=== PATIENT | male | born 1970 | race Two or more races ===

== ENCOUNTER 2020-05-21 07:21 | Outpatient (REF) | payer OTHER, SELFPAY ==
[2020-05-21 11:49] LABS: Estimated Average Glucose 151 mg/dL; Hemoglobin A1c % 6.9 %
[2020-05-21 11:52] LABS: Alanine Aminotransferase 15 U/L (0-40); Albumin Level 4.1 g/dL (3.5-5.0); Alkaline Phosphatase 109 U/L (39-117); Anion Gap 12 (12-20); Aspartate Amino Transferase 15 U/L (5-37); Bilirubin Total 0.4 mg/dL (0.0-1.0); Blood Urea Nitrogen 19 mg/dL (9-16); Calcium 8.6 mg/dL (8.4-10.2); Carbon Dioxide 27 mmol/L (22-29); Chloride 106 mmol/L (96-108); Cholesterol 152 mg/dL; Estimated Glomerular Filt Rate > 60; Glucose Fasting 128 mg/dL (60-99); HDL Cholesterol 45 mg/dL; LDL Cholesterol Calculated 85 mg/dl; Potassium 4.1 mmol/L (3.3-5.1); Sodium 141 mmol/L (135-145); Total Protein 7.1 g/dL (6.5-8.0); Triglycerides 110 mg/dL
[2020-05-21 11:58] LABS: Creatinine Urine 146.27 mg/dL; Microalbum/Creatinine Ratio Ur 5.4 ug/mg cr
== END 2020-05-21 07:22 | disposition home or self-care (01) ==
LOC: HO.HMGCLDS 07:21
PROVIDERS: PCP Internal Medicine; Visit Provider Internal Medicine
DX: E11.65 Type 2 diabetes mellitus with hyperglycemia (principal)
CPT/HCPCS: 36415; 80053; 80061; 82043; 83036

== ENCOUNTER 2021-02-22 08:40 | Outpatient (REF) | payer OTHER, SELFPAY ==
[2021-02-22 12:05] LABS: Alanine Aminotransferase 36 U/L (0-40); Albumin Level 4.2 g/dL (3.5-5.0); Alkaline Phosphatase 116 U/L (39-117); Anion Gap 11 (12-20); Aspartate Amino Transferase 20 U/L (5-37); Bilirubin Total 0.8 mg/dL (0.0-1.0); Blood Urea Nitrogen 12 mg/dL (9-16); Calcium 9.1 mg/dL (8.4-10.2); Carbon Dioxide 27 mmol/L (22-29); Chloride 105 mmol/L (96-108); Cholesterol 129 mg/dL; Estimated Glomerular Filt Rate > 60; Glucose Fasting 288 mg/dL (60-99); HDL Cholesterol 39 mg/dL; LDL Cholesterol Calculated 55 mg/dl; Potassium 4.4 mmol/L (3.3-5.1); Sodium 139 mmol/L (135-145); Total Protein 7.1 g/dL (6.5-8.0); Triglycerides 175 mg/dL
[2021-02-22 12:07] LABS: Estimated Average Glucose 295 mg/dL; Hemoglobin A1c % 11.9 %
[2021-02-22 12:28] LABS: Prostate Specific Antigen Scr 0.32 ng/mL (<0.05-4.0); TSH reflex Free T4 0.83 uIU/mL (0.32-4.0)
[2021-02-22 12:31] LABS: Creatinine Urine 176.85 mg/dL
== END 2021-02-22 08:41 | disposition home or self-care (01) ==
LOC: HO.HMGCLDS 08:40
PROVIDERS: PCP Internal Medicine; Visit Provider Internal Medicine
DX: I10 Essential (primary) hypertension (principal); E11.65 Type 2 diabetes mellitus with hyperglycemia; E78.5 Hyperlipidemia, unspecified
CPT/HCPCS: 36415; 80053; 80061; 82043; 83036; 84153; 84443

== ENCOUNTER 2021-04-21 07:20 | Outpatient (REF) | payer OTHER, SELFPAY ==
[2021-04-21 11:55] LABS: Hemoglobin A1c % > 14.0 %
[2021-04-21 11:59] LABS: Alanine Aminotransferase 44 U/L (0-40); Alkaline Phosphatase 138 U/L (39-117); Anion Gap 15 (12-20); Aspartate Amino Transferase 25 U/L (5-37); Bilirubin Total 1.3 mg/dL (0.0-1.0); Blood Urea Nitrogen 13 mg/dL (9-16); Calcium 9.1 mg/dL (8.4-10.2); Carbon Dioxide 28 mmol/L (22-29); Chloride 99 mmol/L (96-108); Estimated Glomerular Filt Rate > 60; Glucose Fasting 381 mg/dL (60-99); Potassium 4.5 mmol/L (3.3-5.1); Sodium 137 mmol/L (135-145); Total Protein 6.9 g/dL (6.5-8.0)
== END 2021-04-21 07:21 | disposition home or self-care (01) ==
LOC: HO.HMGCLDS 07:20
PROVIDERS: PCP Internal Medicine; Visit Provider Nurse Practitioner Family
DX: E11.65 Type 2 diabetes mellitus with hyperglycemia (principal)
CPT/HCPCS: 36415; 80053; 83036

== ENCOUNTER 2021-08-05 07:45 | Outpatient (REF) | payer OTHER, SELFPAY ==
[2021-08-05 11:33] LABS: Alanine Aminotransferase 25 U/L (0-40); Alkaline Phosphatase 127 U/L (39-117); Anion Gap 9 (12-20); Aspartate Amino Transferase 17 U/L (5-37); Bilirubin Total 0.7 mg/dL (0.0-1.0); Blood Urea Nitrogen 14 mg/dL (9-16); Calcium 9.5 mg/dL (8.4-10.2); Carbon Dioxide 29 mmol/L (22-29); Chloride 105 mmol/L (96-108); Estimated Glomerular Filt Rate > 60; Glucose Random 203 mg/dL (60-115); Potassium 4.3 mmol/L (3.3-5.1); Sodium 139 mmol/L (135-145); Total Protein 7.1 g/dL (6.5-8.0)
[2021-08-05 11:52] LABS: Estimated Average Glucose 298 mg/dL
== END 2021-08-05 07:46 | disposition home or self-care (01) ==
LOC: HO.HMGCLDS 07:45
PROVIDERS: Visit Provider Internal Medicine
DX: E11.65 Type 2 diabetes mellitus with hyperglycemia (principal); E78.5 Hyperlipidemia, unspecified; I10 Essential (primary) hypertension
CPT/HCPCS: 36415; 80053; 83036

== ENCOUNTER 2022-03-03 06:35 | Outpatient (REF) | payer OTHER, SELFPAY ==
[2022-03-03 11:40] LABS: Alanine Aminotransferase 32 U/L (0-40); Albumin Level 4.3 g/dL (3.5-5.0); Alkaline Phosphatase 132 U/L (39-117); Anion Gap 14 (12-20); Aspartate Amino Transferase 19 U/L (5-37); Bilirubin Total 0.6 mg/dL (0.0-1.0); Blood Urea Nitrogen 17 mg/dL (9-16); Calcium 9.4 mg/dL (8.4-10.2); Carbon Dioxide 28 mmol/L (22-29); Chloride 101 mmol/L (96-108); Cholesterol 144 mg/dL; Estimated Glomerular Filt Rate > 60; Glucose Fasting 326 mg/dL (60-99); HDL Cholesterol 43 mg/dL; LDL Cholesterol Calculated 74 mg/dl; Potassium 4.5 mmol/L (3.3-5.1); Sodium 138 mmol/L (135-145); Total Protein 7.4 g/dL (6.5-8.0); Triglycerides 136 mg/dL
[2022-03-03 12:20] LABS: Creatinine Urine 106.13 mg/dL; Microalbum/Creatinine Ratio Ur 5.6 ug/mg cr
[2022-03-03 12:43] LABS: Estimated Average Glucose 255 mg/dL; Hemoglobin A1c % 10.5 %
== END 2022-03-03 06:36 | disposition home or self-care (01) ==
LOC: HO.HMGCLDS 06:35
PROVIDERS: PCP Internal Medicine; Visit Provider Internal Medicine
DX: E11.65 Type 2 diabetes mellitus with hyperglycemia (principal); E78.5 Hyperlipidemia, unspecified; I10 Essential (primary) hypertension
CPT/HCPCS: 36415; 80053; 80061; 82043; 83036

== ENCOUNTER 2024-03-05 06:04 | Outpatient (REF) | payer OTHER, SELFPAY ==
[2024-03-05 10:07] LABS: MANUAL DIFF FLAG NO
[2024-03-05 10:17] LABS: Basophils Percent Auto 0.4 % (0-2); Eosinophils Absolute Auto 0.2 X10*3/uL (0.0-0.4); Eosinophils Percent Auto 2.5 % (0-4); Hematocrit 41.2 % (42.0-52.0); Hemoglobin 13.9 g/dl (14.0-18.0); Imm Gran Abs Auto 0.05 X10*3/uL (0.00-0.03); Imm Gran Pct Auto 0.5 % (0.0-0.4); Lymphocytes Absolute Auto 2.6 X10*3/uL (1.2-4.9); Lymphocytes Percent Auto 28.2 % (20-40); Mean Corpuscular HGB Conc 33.7 g/dl (31.0-36.0); Mean Corpuscular Hemoglobin 29.5 pg (27.0-33.0); Mean Corpuscular Volume 87.5 fL (80.0-98.0); Mean Platelet Volume 10.6 fL (9.4-12.4); Monocytes Absolute Auto 0.7 X10*3/uL (0.1-1.2); Monocytes Percent Auto 7.6 % (2-11); Neutrophils Absolute Auto 5.6 x10*3/uL (2.0-8.3); Neutrophils Percent Auto 60.8 % (45-73); Platelet Count 239 X10*3/uL (160-400); Red Blood Count 4.71 X10*6/uL (4.60-5.80); Red Cell Distribution Width 12.6 % (11.0-16.0); White Blood Count 9.2 X10*3/uL (4.8-10.8)
[2024-03-05 10:22] LABS: Estimated Average Glucose 223 mg/dL; Hemoglobin A1C 287.2648 umol/L; Hemoglobin A1c % 9.4 % (<6.0); Total Hemoglobin (HGBA1C) 3630.7453 umol/L
[2024-03-05 10:56] LABS: Alanine Aminotransferase 15 U/L (0-40); Albumin Level 3.9 g/dL (3.5-5.0); Alkaline Phosphatase 121 U/L (39-117); Anion Gap 7 (12-20); Aspartate Amino Transferase 19 U/L (5-37); Bilirubin Total 0.7 mg/dL (0.0-1.0); Blood Urea Nitrogen 12 mg/dL (9-16); Calcium 8.9 mg/dL (8.4-10.2); Carbon Dioxide 29 mmol/L (22-29); Chloride 109 mmol/L (96-108); Cholesterol 141 mg/dL (<200); Estimated Glomerular Filt Rate > 60; Glucose Fasting 220 mg/dL (60-99); HDL Cholesterol 40 mg/dL (>40); LDL Cholesterol Calculated 68 mg/dL (<100); Potassium 3.9 mmol/L (3.3-5.1); Sodium 141 mmol/L (135-145); Total Protein 7.2 g/dL (6.5-8.0); Triglycerides 165 mg/dL (<150)
[2024-03-05 11:30] LABS: Creatinine Urine 94.56 mg/dL; Microalbum/Creatinine Ratio Ur 14.8 ug/mg cr (<30)
== END 2024-03-05 06:05 | disposition home or self-care (01) ==
LOC: HO.HMGCLDS 06:04
PROVIDERS: PCP Internal Medicine; Visit Provider Internal Medicine
DX: E11.65 Type 2 diabetes mellitus with hyperglycemia (principal); I10 Essential (primary) hypertension; E78.5 Hyperlipidemia, unspecified
CPT/HCPCS: 36415; 80053; 80061; 82043; 82570; 83036; 85025

== ENCOUNTER 2024-07-22 08:44 | Outpatient (AMB) | payer OTHER, SELFPAY ==
--- NOTE | 2024-07-22 08:48 | MHC.PC.OV ---
Vital Signs 07/22/24 08:53 Height 5 ft 10 in Weight 264 lb BMI 37.9 BP 134/92 H Blood Pressure Location Lt brachial Position Sitting Respiration 16 Pulse 87 Pulse Source Pulse Oximeter Temp 98.1 F Temp Source Oral Pulse Oximetry (%) 95 Oxygen Delivery Method Room Air Intake Visit Reasons: Diabetes Intake Note: Pt is here today to f/u DM Allergies No Known Allergies Allergy (Verified 07/22/24 08:49) Medication List - Last Reconciled 07/22/24 by Angeline Rodriguez MD atorvastatin 20 mg PO DAILY blood sugar diagnostic (FreeStyle Lite Strips) As directed blood-glucose sensor (The Online 401 G7 Sensor device) As directed dulaglutide (Trulicity) 4.5 mg (0.5 mL) subcut QWEEK flash glucose scanning reader (Prim LaundryStyle Skinny 14 Day [place]) As directed flash glucose sensor (FreeStyle Skinny 14 Day Sensor kit) As directed insulin glargine (Lantus Solostar U-100 Insulin) 60 units (0.6 mL) subcut QAM lisinopril 40 mg PO DAILY metformin 1,000 mg PO BID pen needle, diabetic (Comfort EZ Pen [place]) As directed to inject insulin daily pen needle, diabetic (BD Ultra-Fine Mini Pen Needle) Use to inject insulin once a day Tobacco use date assessed: 07/22/24 Dental Screening Dental Screen Date: 07/22/24 Did you have a dental visit in the last 12 months?: No Did you have a dental problem in the last 6 months where you did not have access to dental care?: No Was dental information given to patient?: Patient has dentist HPI Diabetes HPI Details Pt presents for f/u. He stopped taking his meds a few months ago. He has been in process of getting divorce for the last 2 yrs. He has not seen a therapist and is not interested in taking meds. He denies SI/HI. [facility] Medical History Annual physical exam Hyperlipidemia Penile cellulitis Essential hypertension Type 2 diabetes mellitus with hyperglycemia Family History Father Substance use disorder Mother Hypertension Diabetes Maternal Grandmother Cancer Social History Housing: House Patient Tobacco Use Status: Never used Tobacco e-Cigarette/Vaping Use: Never Used service: No Current occupational status: employed Cognitive needs: No Hearing needs: No Vision needs: Yes Questionnaire PHQ-9 Over the last 2 weeks, how often have you been bothered by any of the following problems? 1. Little interest or pleasure in doing things: several days 2. Feeling down, depressed, or hopeless: several days 3. Trouble falling or staying asleep, or sleeping too much: several days 4. Feeling tired or having little energy: several days 5. Poor appetite or overeating: several days 6. Feeling bad about yourself - or that you are a failure or have let yourself or your family down: several days 7. Trouble concentrating on things, such as reading the newspaper or watching television: several days 8. Moving or speaking so slowly that other people could have noticed. Or the opposite - being so fidgety or restless that you have been moving around a lot more than usual: not at all 9. Thoughts that you would be better off or of hurting yourself in some way: not at all Total score: 7 Depression Screening Interpretation: Negative Depression Screening Done: Yes 00950 - PHQ-9 Billing: Yes Source: Developed by Drs. Eduardo Richmond, Holly Kulkarni, Emil Patel and colleagues, with an educational ruben from [employer]. Thrive Questionnaire Date Thrive assessed: 07/22/24 I am a: Patient What is your living situation today?: I have a steady place to live Within the past 12 months, did the food you bought not last and you didn't have the money to get more?: Sometimes True Within the past 12 months, did you worry whether your food would run out before you got money to buy more?: Never true Do you have trouble paying for medicines?: No Do you have trouble getting transportation to medical appointments?: No Do you have trouble paying your heating and electricity bill?: No Do you have trouble taking care of your child, family member or friend?: No Do you have trouble with day-to-day activities such as bathing, preparing meals, shopping, managing finances, etc.?: No Are you currently unemployed and looking for a job?: No Are you interested in more education?: No Please select the resources that you would like help with: None Currently or been in a relationship where the following occur: No concerns reported THRIVE Score: 1 AUDIT C Alcohol Use Questionnaire (AUDIT-C) 1. How often do you have a drink containing alcohol?: Never Total Score: 0 JULIANA-7 AMB Questionnaire JULIANA-7 Date JULIANA - 7 assessed: 07/22/24 Feeling nervous, anxious, or on edge: 0 = Not at all Not being able to stop or control worryin = Not at all Worrying too much about different things: 0 = Not at all Trouble relaxin = Several days Being so restless that it is hard to sit still: 0 = Not at all Becoming easily annoyed or irritable: 0 = Not at all Feeling afraid as if something awful might happen: 0 = Not at all Total JULIANA-7 score (0-4 normal; 5-9 mild; 10-14 moderate; 15-21 severe): 1 Source: Developed by Drs. Eduardo Richmond, Holly Kulkarni, Emil Patel and colleagues, with an educational ruben from [employer]. Review of Systems Const All systems reviewed & are unremarkable except as noted in HPI and below Reports no additional complaints ENT Reports no additional complaints Card Reports no additional complaints Resp Reports no additional complaints GI Reports no additional complaints Reports no additional complaints Musc Reports no additional complaints Physical exam (Primary Care) Vital Signs: Last Vital Signs Temp 98.1 F 07/22/24 08:53 Pulse 87 07/22/24 08:53 Resp 16 07/22/24 08:53 BP 134/92 H 07/22/24 08:53 Pulse Ox 95 07/22/24 08:53 Oxygen Delivery Method Room Air 07/22/24 08:53 BMI result Body Mass Index 37.9 Tobacco/Smoking Status: Tobacco use Status Tobacco use date assessed 07/22/24 07/22/24 08:49 Patient Tobacco Use Status Never used Tobacco 07/22/24 08:49 e-Cigarette/Vaping Use Never Used 07/22/24 08:49 PHQ-9: PHQ-9 Score PHQ-9: Total score 7 07/22/24 08:49 Depression Screening Interpretation: Negative Thrive Assessment: Date of Thrive Assessment Date Thrive assessed 07/22/24 07/22/24 08:49 Currently or been in a relationship where the following occur: No concerns reported Const General: no acute distress HENMT Head: Yes normal to inspection Ears: hearing grossly normal bilaterally Mouth: Normal oral and palatal mucosa present Neck Neck: Yes supple Resp Effort & Inspection: normal respiratory effort Auscultation: clear to auscultation bilaterally Cardio Rhythm: regular rhythm Heart sounds: S1 normal heart sound present and S2 normal heart sound present GI Inspection: Yes normal to inspection Palpation (GI): Soft to palpation Percussion: Yes normal to percussion Auscultation: normal bowel sounds Extrem General: Yes no clubbing, cyanosis or edema Results AMB Hemoglobin A1c AMB Hemoglobin A1c 11.5 % Last Edit by Glenn De León CMA on 07/22/24 09:10 Results Reviewed Results Reviewed: Laboratory Last Values Hgb A1c (Clinic) 11.5 % (4.0-6.0) H 07/22/24 09:02 Coding Level of Care Code Est Pt Level 4 (91524) Diagnoses Essential hypertension I10 Type 2 diabetes mellitus with hyperglycemia E11.65 Hyperlipidemia E78.5 Anxiety and depression F41.9; F32.A Additional Codes PHQ-9 - 82908 - PHQ-9 Billing: Yes ([id number]) Assessment & Plan Assessment & Plan (1) Essential hypertension: Code(s): I10 - Essential (primary) hypertension Category: Medical Plan: Restart Lisinopril (2) Type 2 diabetes mellitus with hyperglycemia: Comment: Poorly controlled due to noncompliance Code(s): E11.65 - Type 2 diabetes mellitus with hyperglycemia Category: Medical Plan: check labs, restart Insulin, Metformin and Trulicity. Pt needs to monitor blood glucose with continuos sensor to detect hypoglycemia, f/u 1 month (3) Hyperlipidemia: Code(s): E78.5 - Hyperlipidemia, unspecified Category: Medical Plan: restart statin (4) Anxiety and depression: Code(s): F41.9 - Anxiety disorder, unspecified; F32.A - Depression, unspecified Category: Medical Plan: start therapy, pt declined meds Orders: Orders Lipid Panel 1 Month E11.65 - Type 2 diabetes mellitus with hyperglycemia, E78.5 - Hyperlipidemia, unspecified, I10 - Essential (primary) hypertension Microalbumin, Random (w Creat) 1 Month E11.65 - Type 2 diabetes mellitus with hyperglycemia, E78.5 - Hyperlipidemia, unspecified, I10 - Essential (primary) hypertension AMB Hemoglobin A1c Today . - Type 2 diabetes mellitus with hyperglycemia Comprehensive [place]. Panel Fast 1 Month . - Type 2 diabetes mellitus with hyperglycemia, E78.5 - Hyperlipidemia, unspecified, I10 - Essential (primary) hypertension Complete Blood Count Auto Diff 1 Month . - Type 2 diabetes mellitus with hyperglycemia, E78.5 - Hyperlipidemia, unspecified, I10 - Essential (primary) hypertension TSH reflex Free T4 1 Month . - Type 2 diabetes mellitus with hyperglycemia, E78.5 - Hyperlipidemia, unspecified, I10 - Essential (primary) hypertension PSA,Total (Free>4and<10) 1 Month . - Type 2 diabetes mellitus with hyperglycemia, E78.5 - Hyperlipidemia, unspecified, I10 - Essential (primary) hypertension Medications: New blood-glucose sensor (Dexcom G7 Sensor device) As directed 3 ea 3RF dulaglutide (Trulicity) 0.75 mg (0.5 mL) subcut QWEEK 2 mL 0RF Changed From insulin glargine (Lantus Solostar U-100 Insulin) 60 units (0.6 mL) subcut QAM 60 mL 3RF .65 - Type 2 diabetes mellitus with hyperglycemia To insulin glargine (Lantus Solostar U-100 Insulin) 75 units (0.75 mL) subcut QAM 60 mL 3RF 65 - Type 2 diabetes mellitus with hyperglycemia Refilled atorvastatin 20 mg PO DAILY 90 tabs 3RF insulin glargine (Lantus Solostar U-100 Insulin) 60 units (0.6 mL) subcut QAM 60 mL 3RF 65 - Type 2 diabetes mellitus with hyperglycemia lisinopril 40 mg PO DAILY 90 tabs 3RF I10 - Essential (primary) hypertension metformin 1,000 mg PO BID 180 tabs 3RF
[2024-07-22 08:53] VITALS: BP 134/92; PULSE 87; RESP 16; TEMP 36.7; O2SAT 95; BMI 37.9
--- OUTSIDE RECORDS SUMMARY | 2024-07-22 09:25 | XMS_ITS | Clinical Summary ---
Author Organization [facility] ity Address [address] [place] [address] Care Team Providers Care Jewelry Cutter Name Role Phone Unavailable Primary Care Provider Unavailabl e Social History Tobacco Use Types Packs/Day Years Used Date Smoking Tobacco: Never Assessed Sex and Gender Information Value Date Recorded Sex Assigned at Not on file Legal Sex Male 1:54 PM EST Gender Identity Not on file Sexual Orientation Not on file Plan of Treatment Health Maintenance Due Date Last Done Comments DTaP,Tdap,and Td Vaccines (1 - Tdap) 1989 Hepatitis B Vaccines (1 of 3 - 19+ 3-dose series) 1989 Pneumococcal Vaccine: 50+ Ye ars (1 of 1 - PCV) 2020 Zoster Vaccines (1 of 2) 2020 COVID-19 Vaccine ( - 2023-2 5 season) 2023 Influenza Vaccine (Season Ended) 2024 HIB Vaccines Aged Out No longer eligi ble based on patient's age to complete this topic HPV Vaccines Aged Out No longer eligi ble based on patient's age to complete this topic Hepatitis A Vaccines Aged Out No long er eligible based on patient's age to complete this topic IPV Vaccines Aged Out No longer eligi ble based on patient's age to complete this topic MMR Vaccines Aged Out No longer eligi ble based on patient's age to complete this topic Meningococcal ACWY Vaccine Aged Out N o longer eligible based on patient's age to complete this topic Meningococcal B Vacine Aged Out No lo nger eligible based on patient's age to complete this topic Pneumococcal Vaccine: Pediat rics (0 to 5 Years) and At-Risk Patients (6 to 64 Years) Aged Out No longer eligible b ased on patient's age to complete this topic RSV Immunization Patients Un mey 20 months Aged Out No longer eligible b ased on patient's age to complete this topic Varicella Vaccines Aged Out No longer eligible based on patient's age to complete this topic
== END 2024-07-22 09:57 | disposition home or self-care (01) ==
LOC: HO.HMCC 08:44
PROVIDERS: PCP Internal Medicine; Visit Provider Internal Medicine
DX: I10 Essential (primary) hypertension (principal); E11.65 Type 2 diabetes mellitus with hyperglycemia; E78.5 Hyperlipidemia, unspecified; F41.9 Anxiety disorder, unspecified; F32.A Depression, unspecified

== ENCOUNTER → 2024-07-22 08:44 | Outpatient (BNVA) | payer OTHER, SELFPAY | PROVIDERS: PCP Internal Medicine; Visit Provider Internal Medicine | DX: I10 Essential (primary) hypertension (principal); E11.65 Type 2 diabetes mellitus with hyperglycemia; E78.5 Hyperlipidemia, unspecified; F41.9 Anxiety disorder, unspecified; F32.A Depression, unspecified | CPT/HCPCS: 83036; 96127 ==

== ENCOUNTER 2024-08-22 13:33 | Outpatient (AMB) | payer OTHER, SELFPAY ==
[2024-08-22 13:35] VITALS: BP 106/60; PULSE 94; RESP 18; TEMP 37.2; O2SAT 95; BMI 37.9
--- NOTE | 2024-08-22 13:35 | A.OFFPC_ITS ---
Vital Signs 08/22/24 13:35 08/22/24 13:40 Height 5 ft 10 in Weight 264 lb BMI 37.9 BP 106/60 110/70 Blood Pressure Location Rt brachial Lt brachial Position Sitting Sitting Respiration 18 Pulse 94 Pulse Source Pulse Oximeter Temp 98.9 F Temp Source Oral Pulse Oximetry (%) 95 Oxygen Delivery Method Room Air Intake Visit Reasons: 1 month f/up Intake Note: Pt is here today for 1 month follow up visit. Allergies No Known Allergies Allergy (Verified 08/22/24 13:35) Tobacco use date assessed: 08/22/24 Dental Screening Dental Screen Date: 07/22/24 HPI 1 month f/up HPI Details Pt presents for f/u poorly controlled IDDM, hypertension hyperlipidemia. He has been taking 75 units of insulin glargine and reports fluctuating fasting blood glucose between 140-180. Patient is waiting for approval of Trulicity and continuous glucose monitoring sensor. He is established with a counselor. Patient has been under lot of stress related to his pending divorce but is not interested in taking antidepressants. [facility] Medical History (Updated 08/22/24 @ 14:40 by Angeline Rodriguez MD) Anxiety and depression Annual physical exam Hyperlipidemia Essential hypertension Type 2 diabetes mellitus with hyperglycemia Family History Father Substance use disorder Mother Hypertension Diabetes Maternal Grandmother Cancer Social History Housing: House Patient Tobacco Use Status: Never used Tobacco e-Cigarette/Vaping Use: Never Used service: No Current occupational status: employed Cognitive needs: No Hearing needs: No Vision needs: Yes Questionnaire Thrive Questionnaire Date Thrive assessed: 07/22/24 I am a: Patient What is your living situation today?: I have a steady place to live Within the past 12 months, did the food you bought not last and you didn't have the money to get more?: Never true Within the past 12 months, did you worry whether your food would run out before you got money to buy more?: Never true Do you have trouble paying for medicines?: No Do you have trouble getting transportation to medical appointments?: No Do you have trouble paying your heating and electricity bill?: No Do you have trouble taking care of your child, family member or friend?: No Do you have trouble with day-to-day activities such as bathing, preparing meals, shopping, managing finances, etc.?: No Are you currently unemployed and looking for a job?: No Are you interested in more education?: No Please select the resources that you would like help with: None Currently or been in a relationship where the following occur: No concerns reported THRIVE Score: 0 AUDIT C Alcohol Use Questionnaire (AUDIT-C) 1. How often do you have a drink containing alcohol?: Never 3. How often do you have six or more drinks on one occasion?: Never Total Score: 0 JULIANA-7 AMB Questionnaire JULIANA-7 Date JULIANA - 7 assessed: 07/22/24 Source: Developed by Drs. Eduardo Richmond, Holly Kulkarni, Emil Patel and colleagues, with an educational ruben from [email or web address]. Review of Systems Const All systems reviewed & are unremarkable except as noted in HPI and below Eyes Reports no additional complaints ENT Reports no additional complaints Card Reports no additional complaints Resp Reports no additional complaints GI Reports no additional complaints Reports no additional complaints Physical exam (Primary Care) Vital Signs: Last Vital Signs Temp 98.9 F 08/22/24 13:35 Pulse 94 08/22/24 13:35 Resp 18 08/22/24 13:35 BP 110/70 08/22/24 13:40 Pulse Ox 95 08/22/24 13:35 Oxygen Delivery Method Room Air 08/22/24 13:35 BMI result Body Mass Index 37.9 Tobacco/Smoking Status: Tobacco use Status Tobacco use date assessed 08/22/24 08/22/24 13:37 Patient Tobacco Use Status Never used Tobacco 08/22/24 13:37 e-Cigarette/Vaping Use Never Used 08/22/24 13:37 Thrive Assessment: Date of Thrive Assessment Date Thrive assessed 07/22/24 08/22/24 13:37 Currently or been in a relationship where the following occur: No concerns reported Const General: no acute distress Resp Effort & Inspection: normal respiratory effort Auscultation: clear to auscultation bilaterally Cardio Rhythm: regular rhythm Heart sounds: S1 normal heart sound present and S2 normal heart sound present GI Inspection: Yes normal to inspection Palpation (GI): Soft to palpation Coding Level of Care Code Est Pt Level 4 (13101) Diagnoses Anxiety and depression F41.9; F32.A Type 2 diabetes mellitus with hyperglycemia E11.65 Hyperlipidemia E78.5 Assessment & Plan Assessment & Plan (1) Anxiety and depression: Code(s): F41.9 - Anxiety disorder, unspecified; F32.A - Depression, unspecified Category: Medical Plan: Patient will continue counseling. He declined medications (2) Type 2 diabetes mellitus with hyperglycemia: Comment: Poorly controlled due to noncompliance Code(s): E11.65 - Type 2 diabetes mellitus with hyperglycemia Category: Medical Plan: ADA diet increase exercise weight loss discussed with the patient. GLP 1 agonist will be added once pre authorization is completed. Patient was advised to start monitoring continuously glucose with a sensor pending authorization. He will continue metformin and insulin follow-up in 1 month (3) Hyperlipidemia: Code(s): E78.5 - Hyperlipidemia, unspecified Category: Medical Plan: Continue statin
[2024-08-22 13:40] VITALS: BP 110/70
--- OUTSIDE RECORDS SUMMARY | 2024-08-22 14:35 | XMS_ITS | Clinical Summary ---
Author Organization [facility] ity Address [address] [place] [address] Care Team Providers Care Education Department Chair Name Role Phone Unavailable Primary Care Provider [...] age to complete this topic Meningococcal B Vaccine Aged Out No l onger eligible based on patient's age to complete [...]
== END 2024-08-22 14:45 | disposition home or self-care (01) ==
LOC: HO.HMCC 13:33
PROVIDERS: PCP Internal Medicine; Visit Provider Internal Medicine
DX: F41.9 Anxiety disorder, unspecified (principal); F32.A Depression, unspecified; E11.65 Type 2 diabetes mellitus with hyperglycemia; E78.5 Hyperlipidemia, unspecified

== ENCOUNTER → 2024-08-22 13:33 | Outpatient (BNVA) | payer OTHER, SELFPAY | PROVIDERS: PCP Internal Medicine; Visit Provider Internal Medicine | DX: Z13.89 Encounter for screening for other disorder (principal) ==

== ENCOUNTER 2024-10-05 08:14 | Outpatient (REF) | payer OTHER, SELFPAY ==
[2024-10-05 11:20] LABS: MANUAL DIFF FLAG NO
[2024-10-05 11:23] LABS: Basophils Absolute Auto 0.1 X10*3/uL (0.0-0.2); Basophils Percent Auto 0.8 % (0-2); Eosinophils Absolute Auto 0.2 X10*3/uL (0.0-0.4); Hematocrit 43.1 % (42.0-52.0); Hemoglobin 14.6 g/dl (14.0-18.0); Imm Gran Abs Auto 0.05 X10*3/uL (0.00-0.03); Imm Gran Pct Auto 0.7 % (0.0-0.4); Lymphocytes Percent Auto 26.3 % (20-40); Mean Corpuscular HGB Conc 33.9 g/dl (31.0-36.0); Mean Corpuscular Hemoglobin 29.5 pg (27.0-33.0); Mean Corpuscular Volume 87.1 fL (80.0-98.0); Mean Platelet Volume 10.7 fL (9.4-12.4); Monocytes Absolute Auto 0.6 X10*3/uL (0.1-1.2); Monocytes Percent Auto 8.3 % (2-11); Neutrophils Absolute Auto 4.8 x10*3/uL (2.0-8.3); Neutrophils Percent Auto 61.9 % (45-73); Platelet Count 258 X10*3/uL (160-400); Red Blood Count 4.95 X10*6/uL (4.60-5.80); Red Cell Distribution Width 12.6 % (11.0-16.0); White Blood Count 7.7 X10*3/uL (4.8-10.8)
[2024-10-05 11:41] LABS: Alanine Aminotransferase 15 U/L (0-40); Albumin Level 4.1 g/dL (3.5-5.0); Alkaline Phosphatase 109 U/L (39-117); Anion Gap 10 (12-20); Aspartate Amino Transferase 18 U/L (5-37); Bilirubin Total 0.7 mg/dL (0.0-1.0); Blood Urea Nitrogen 12 mg/dL (9-16); Carbon Dioxide 26 mmol/L (22-29); Chloride 109 mmol/L (96-108); Cholesterol 170 mg/dL (<200); Estimated Glomerular Filt Rate > 60; Glucose Fasting 129 mg/dL (60-99); HDL Cholesterol 43 mg/dL (>40); LDL Cholesterol Calculated 105 mg/dL (<100); Sodium 141 mmol/L (135-145); Triglycerides 110 mg/dL (<150)
[2024-10-05 11:45] LABS: Creatinine Urine 104.87 mg/dL; Microalbum/Creatinine Ratio Ur 13.3 ug/mg cr (<30)
[2024-10-05 11:57] LABS: TSH reflex Free T4 1.74 uIU/mL (0.32-4.0)
[2024-10-05 11:59] LABS: PSA,Total (Free>4and<10) 0.36 ng/mL (0.00-4.00)
== END 2024-10-05 08:15 | disposition home or self-care (01) ==
LOC: HO.HMGCLDS 08:14
PROVIDERS: PCP Internal Medicine; Visit Provider Internal Medicine
DX: I10 Essential (primary) hypertension (principal); E11.65 Type 2 diabetes mellitus with hyperglycemia; E78.5 Hyperlipidemia, unspecified; Z12.5 Encounter for screening for malignant neoplasm of prostate
CPT/HCPCS: 36415; 80053; 80061; 82043; 82570; 84153; 84443; 85025

== ENCOUNTER 2024-10-11 10:35 | Outpatient (AMB) | payer OTHER, SELFPAY ==
[2024-10-11 10:45] VITALS: BP 124/78; PULSE 105; RESP 20; TEMP 37; O2SAT 95; BMI 39.3
--- NOTE | 2024-10-11 10:45 | A.OFFPC_ITS ---
Vital Signs 10/11/24 10:45 Height 5 ft 10 in Weight 274 lb BMI 39.3 BP 124/78 Blood Pressure Location Lt brachial Position Sitting Respiration 20 Pulse 105 H Pulse Source Pulse Oximeter Temp 98.6 F Temp Source Oral Pulse Oximetry (%) 95 Oxygen Delivery Method Room Air Intake Visit Reasons: 1m follow up Intake Note: Pt is here today for 1 month follow up visit. Allergies No Known Allergies Allergy (Verified 10/11/24 10:45) Medication List - Last Reconciled 10/11/24 by Angeline Rodriguez MD atorvastatin 20 mg PO DAILY blood sugar diagnostic (FreeStyle Lite Strips) As directed blood-glucose sensor (Clupedia G7 Sensor device) As directed dulaglutide (Trulicity) 1.5 mg (0.5 mL) subcut QWEEK flash glucose scanning reader (FreeStyle Skinny 14 Day [place]) As directed flash glucose sensor (FreeStyle Skinny 14 Day Sensor kit) As directed insulin glargine-yfgn (Semglee (insulin glargine-yfgn) Pen) 75 units (0.75 mL) subcut DAILY lisinopril 40 mg PO DAILY metformin 1,000 mg PO BID pen needle, diabetic (Comfort EZ Pen [place]) As directed to inject insulin daily pen needle, diabetic (BD Ultra-Fine Mini Pen Needle) Use to inject insulin once a day Tobacco use date assessed: 10/11/24 Dental Screening Dental Screen Date: 07/22/24 HPI 1m follow up HPI Details Pt presents for follow-up of insulin-dependent diabetes. He has been compliant with medications and trying to follow ADA diet. He has been monitoring his blood glucose occasionally with the readings between 150-180 fasting [facility] Medical History Anxiety and depression Annual physical exam Hyperlipidemia Essential hypertension Type 2 diabetes mellitus with hyperglycemia Family History Father Substance use disorder Mother Hypertension Diabetes Maternal Grandmother Cancer Social History Housing: House Patient Tobacco Use Status: Never used Tobacco e-Cigarette/Vaping Use: Never Used service: No Current occupational status: employed Cognitive needs: No Hearing needs: No Vision needs: Yes Questionnaire Thrive Questionnaire Date Thrive assessed: 07/22/24 I am a: Patient What is your living situation today?: I have a steady place to live Within the past 12 months, did the food you bought not last and you didn't have the money to get more?: Never true Within the past 12 months, did you worry whether your food would run out before you got money to buy more?: Never true Do you have trouble paying for medicines?: No Do you have trouble getting transportation to medical appointments?: No Do you have trouble paying your heating and electricity bill?: No Do you have trouble taking care of your child, family member or friend?: No Do you have trouble with day-to-day activities such as bathing, preparing meals, shopping, managing finances, etc.?: No Are you currently unemployed and looking for a job?: No Are you interested in more education?: No Please select the resources that you would like help with: None Currently or been in a relationship where the following occur: No concerns reported THRIVE Score: 0 JULIANA-7 AMB Questionnaire JULIANA-7 Date JULIANA - 7 assessed: 07/22/24 Source: Developed by Drs. Eduardo Richmond, Holly Kulkarni, Emil Patel and colleagues, with an educational ruben from [employer]. Review of Systems Const All systems reviewed & are unremarkable except as noted in HPI and below Eyes Reports no additional complaints ENT Reports no additional complaints Card Reports no additional complaints Resp Reports no additional complaints GI Reports no additional complaints Reports no additional complaints Physical exam (Primary Care) Vital Signs: Last Vital Signs Temp 98.6 F 10/11/24 10:45 Pulse 105 H 10/11/24 10:45 Resp 20 10/11/24 10:45 BP 124/78 10/11/24 10:45 Pulse Ox 95 10/11/24 10:45 Oxygen Delivery Method Room Air 10/11/24 10:45 BMI result Body Mass Index 39.3 Tobacco/Smoking Status: Tobacco use Status Tobacco use date assessed 10/11/24 10/11/24 10:46 Patient Tobacco Use Status Never used Tobacco 10/11/24 10:46 e-Cigarette/Vaping Use Never Used 10/11/24 10:46 Thrive Assessment: Date of Thrive Assessment Date Thrive assessed 07/22/24 10/11/24 10:46 Currently or been in a relationship where the following occur: No concerns reported Const General: no acute distress HENMT Ears: hearing grossly normal bilaterally Mouth: Normal oral and palatal mucosa present Eyes General: appearance normal, both eyes and all related structures Neck Neck: Yes supple Resp Effort & Inspection: normal respiratory effort Auscultation: clear to auscultation bilaterally Cardio Rhythm: regular rhythm Heart sounds: S1 normal heart sound present and S2 normal heart sound present GI Inspection: Yes normal to inspection Palpation (GI): Soft to palpation Percussion: Yes normal to percussion Auscultation: normal bowel sounds Results AMB Hemoglobin A1c AMB Hemoglobin A1c 8.9 % Last Edit by DONNY Larios on 10/11/24 11:4 3 Results Reviewed Results Reviewed: Laboratory Last Values Hgb A1c (Clinic) 8.9 % (4.0-6.0) H 10/11/24 11:42 Coding Level of Care Code Est Pt Level 4 (34652) Complex EM visit Add On G2211 Diagnoses Type 2 diabetes mellitus with hyperglycemia E11.65 Hyperlipidemia E78.5 Essential hypertension I10 Assessment & Plan Assessment & Plan (1) Type 2 diabetes mellitus with hyperglycemia: Comment: Poorly controlled due to noncompliance Code(s): E11.65 - Type 2 diabetes mellitus with hyperglycemia Category: Medical Plan: A1c is improving down to 8.4, ADA diet increase exercise weight loss discussed with the patient. patient will start continuous glucose monitoring to improve diabetic control and detect hypoglycemia. Patient is insurance covers [employer] and he will be switched from [email or web address]. Patient will continue metformin follow- up in 2 months with a fasting labs before (2) Hyperlipidemia: Code(s): E78.5 - Hyperlipidemia, unspecified Category: Medical Plan: Continue statin check lipid profile (3) Essential hypertension: Code(s): I10 - Essential (primary) hypertension Category: Medical Plan: Continue Lisinopril Orders: Orders Comprehensive Met. Panel 2 Months E11.65 - Type 2 diabetes mellitus with hyperglycemia, E78.5 - Hyperlipidemia, unspecified, I10 - Essential (primary) hypertension Complete Blood Count Auto Diff 2 Months E11.65 - Type 2 diabetes mellitus with hyperglycemia, E78.5 - Hyperlipidemia, unspecified, I10 - Essential (primary) hypertension Lipid Panel 2 Months E11.65 - Type 2 diabetes mellitus with hyperglycemia, E78.5 - Hyperlipidemia, unspecified, I10 - Essential (primary) hypertension Microalbumin, Random (w Creat) 2 Months E11.65 - Type 2 diabetes mellitus with hyperglycemia, E78.5 - Hyperlipidemia, unspecified, I10 - Essential (primary) hypertension AMB Hemoglobin A1c Today Z13.9 - Encounter for screening, unspecified Medications: New semaglutide 0.5 mg (0.374 mL) subcut QWEEK 1.5 mL 2RF Discontinued dulaglutide (Trulicity) Discontinued Reason: Doctor's Order 0.75 mg (0.5 mL) subcut QWEEK 2 mL 0RF
--- OUTSIDE RECORDS SUMMARY | 2024-10-11 11:25 | XMS_ITS | Clinical Summary ---
Author Organization [facility] ity Address [address] [place] [address] Care Team Providers Care Burlap Worker Name Role Phone Unavailable Primary Care Provider [...]
== END 2024-10-11 11:49 | disposition home or self-care (01) ==
LOC: HO.HMCC 10:35
PROVIDERS: PCP Internal Medicine; Visit Provider Internal Medicine
DX: E11.65 Type 2 diabetes mellitus with hyperglycemia (principal); E78.5 Hyperlipidemia, unspecified; I10 Essential (primary) hypertension; Z13.9 Encounter for screening, unspecified

== ENCOUNTER → 2024-10-11 10:35 | Outpatient (BNVA) | payer OTHER, SELFPAY | PROVIDERS: PCP Internal Medicine; Visit Provider Internal Medicine | DX: E11.65 Type 2 diabetes mellitus with hyperglycemia (principal); E78.5 Hyperlipidemia, unspecified; I10 Essential (primary) hypertension; Z79.4 Long term (current) use of insulin | CPT/HCPCS: 83036 ==